=== PATIENT | female | born 1940 | race Caucasian/White ===

== ENCOUNTER 2022-03-21 23:02 | Emergency (ER) | payer MEDICARE, OTHER ==
[~2022-03-21] VITALS: Ht 149.9 cm; Wt 59.0 kg
--- NOTE | 2022-03-22 00:40 | NUR ---
Pt. and son, signed AMA form, pt. currently doig CT scan. per son will call back for all results.
[2022-03-22 00:41] LABS: MEAN CORPUSCULAR HEMOGLOBIN 28.5 uug (24.7-32.8); MEAN CORPUSCULAR VOLUME 82.7 fL (75.5-95.3); PLATELET COUNT (AUTO) 244 K/uL (179-408)
[2022-03-22 00:52] LABS: CARBON DIOXIDE 29 mmol/L (21-32); CHLORIDE 103 mmol/L (98-107); GLUCOSE 116 mg/dL (74-106); POTASSIUM 3.9 mmol/L (3.5-5.1); UREA NITROGEN, BLOOD 18 mg/dL (7-18)
--- NOTE | 2022-03-22 00:58 | NUR ---
Pt. back from CT scan.
[2022-03-22 01:02] VITALS: BP 122/80
[2022-03-22 01:08] LABS: LIPASE 157 U/L (73-393)
[2022-03-22 01:09] LABS: ALANINE AMINOTRANSFERASE 18 U/L (14-59); ALKALINE PHOSPHATASE 77 U/L (50-136); BILIRUBIN,DIRECT 0.1 mg/dL (0.0-0.2); BILIRUBIN,TOTAL 0.2 mg/dL (0.2-1.0); TOTAL PROTEIN, SERUM 6.9 g/dL (6.4-8.2)
[2022-03-22 01:25] LABS: ASPARTATE AMINOTRANSFERASE 20 U/L (15-37)
== END 2022-03-22 01:05 | disposition home or self-care (01) ==
LOC: ER 23:02
DX: R10.9 Unspecified abdominal pain (principal); G89.29 Other chronic pain; G20 Parkinson's disease; N20.0 Calculus of kidney
CPT/HCPCS: 36415; 83690; 84484; 85025; 93005; A4663